=== PATIENT | male | born 1975 | race Caucasian/White ===

== ENCOUNTER 2024-10-11 10:41 | Inpatient (IN) | payer OTHER ==
[~2024-10-11] VITALS: Ht 177.8 cm; Wt 112.2 kg
--- NOTE | 2024-10-11 10:56 | ED.PDOC ---
General HPI Comments 48 year old male presents to the ED with a chief complaint of urinary retention onset 2 days. Patient states he has been experiencing urinary retention for the past 2 days, "only few drops come out." Last night, patient experienced fever of 101.9 F. He is also experiencing chills, cough, headache and chest discomfort. Denies PMHx as well as diarrhea, nausea, vomiting, abdominal pain, dizziness, hematuria. No other symptoms or modifying factors present at this time. Chief Complaint: Urinary Time Seen by MD: 10:48 Reviewed notes: Medications, Allergies Allergies: Coded Allergies: Penicillins (Verified Allergy, Unknown, 10/11/24) Information Source: Patient Mode of Arrival: Ambulatory Severity: Moderate Timing: Days Duration: Since onset Prehospital treatment: None Onset: Spontaneous Symptoms: Other (retention) History of: None Location: None Penile discharge: None Modifying factors: None associated signs and symptoms: Fever Past Medical History PAST MEDICAL HISTORY: Denies Surgical History: Denies all surgeries Family History Family History: Reviewed,noncontributory to illness, No family hx of Cancer, No family hx of DM, No family hx of Heart hina, No family hx of HTN, No family hx ofKidney hina, No family hx of Liver hina, No family hx of Lung hina, No family hx of Stroke Social History Smoker: Non-Smoker Alcohol: Denies ETOH Use Drugs: Denies Drug Use Lives In: Home Constitutional: reports: chills, fever; denies: diaphoresis, fatigue, malaise, sweats, weakness, others EENTM: denies: blurred vision, double vision, ear bleeding, ear discharge, ear drainage, ear pain, ear ringing, eye pain, eye redness, hearing loss, mouth pain, mouth swelling, nasal discharge, nose bleeding, nose congestion, nose pain, photophobia, tearing, throat pain, throat swelling, voice changes, others Respiratory: reports: cough; denies: hemoptysis, orthopnea, SOB at rest, shortness of breath, SOB with excertion, stridor, wheezing, others Cardiovascular: denies: chest pain, dizzy spells, diaphoresis, Dyspnea on exertion, edema, irregular heart beat, left arm pain, lightheadedness, palpitations, PND, syncope, others Gastrointestinal: reports: poor appetite; denies: abdomen distended, abdominal pain, blood streaked bowels, constipated, diarrhea, dysphagia, difficulty swallowing, hematemesis, melena, nausea, poor fluid intake, rectal bleeding, rectal pain, vomiting, others Genitourinary: reports: others (difficulty urinating, retention); denies: burning, dysuria, flank pain, frequency, hematuria, incontinence, penile discharge, penile sore, pain, testicle pain, testicle swelling, urgency Neurological: reports: headache; denies: dizziness, fainting, left sided numbness, left sided weakness, numbness, paresthesia, pre-existing deficit, right sided numbness, right sided weakness, seizure, speech problems, tingling, tremors, weakness, others Musculoskeletal: denies: back pain, gout, joint pain, joint swelling, muscle pain, muscle stiffness, neck pain, others Integumetry: denies: bruises, change in color, change in hair/nails, dryness, laceration, lesions, lumps, rash, wounds, others Allergic/Immunocompromised: denies: Difficulty Healing, Frequent Infections, Hives, Itching, others Hematologic/Lymphatic: denies: anemia, blood clots, easy bleeding, easy bruising, swollen glands, others Endocrine: denies: excessive hunger, excessive sweating, excessive thirst, excessive urination, flushing, intolerance to cold, intolerance to heat, unexplained weight gain, unexplained weight loss, others Psychiatric: denies: anxiety, bipolar disorder, depression, hopeless, panic disorder, schizophrenia, sleepless, suicidal, others All Other Systems: Reviewed and Negative Physical Exam General Appearance: Moderate Distress, Normal HEENT: Normal ENT Inspection, Pharynx Normal, TMs Normal Neck: Full Range of Motion, Non-Tender, Normal, Normal Inspection Respiratory: Chest Non-Tender, Lungs Clear, No Accessory Muscle Use, No Respiratory Distress, Normal Breath Sounds Cardiovascular: No Edema, No JVD, No Murmur, No Gallop, Normal Peripheral Pulses, Tachycardia Breast Exam: Deferred Gastrointestinal: No Organomegaly, Non Tender, No Pulsatile Mass, Normal Bowel Sounds, Soft Genitalia: Deferred Pelvic: Deferred Rectal: Deferred Extremities: No calf tenderness, Normal capillary refill, Normal inspection, Normal range of motion, Non-tender, No pedal edema Musculoskeletal : Apperance: Normal Neurologic: Alert, electrician's assistant II-XII nml as Tested, No Motor Deficits, Normal Affect, Normal Mood, No Sensory Deficits Cerebellar Function: Normal Reflexes: Normal Skin: Dry, Normal Color, Warm Peripheral Pulses: 3+ Radial (R), 3+ Radial (L) Lymphatic: No Adenopathy Was a procedure done? Was a procedure done?: No EKG EKG : Pulse Rate (adult): 124 Cardiac Rhythm: ST Differential Diagnosis Kidney stone (Female): Musculoskeletal pain, Urinary obstruction, Urolithiasis X-Ray, Labs, Meds, VS Vital Signs Date Time Temp Pulse Resp B/P (MAP) Pulse Ox O2 Delivery O2 Flow Rate FiO2 10/11/24 11:09 124 10/11/24 11:06 102.9 10/11/24 10:53 124 10/11/24 10:52 102.9 124 20 136/66 (89) 97 102.9 Lab Test 10/11/24 11:07 10/11/24 10:52 Range/Units White Blood Count 13.9 H 4.4-10.8 10^3/uL Red Blood Count 5.02 4.5-5.90 10^6/uL Hemoglobin 15.5 13.5-17.5 g/dL Hematocrit 46.3 41.0-53.0 % Mean Corpuscular Volume 92.3 80.0-100.0 fL Mean Corpuscular Hemoglobin 30.9 28.0-32.0 pg Mean Corpuscular Hemoglobin Concent 33.5 32.0-36.0 g/dL Red Cell Distribution Width 13.5 11.8-14.3 % Platelet Count 182 140-450 10^3/uL Mean Platelet Volume 7.7 6.9-10.8 fL Neutrophils (%) (Auto) 90.1 H 37.0-80.0 % Lymphocytes (%) (Auto) 4.9 L 10.0-50.0 % Monocytes (%) (Auto) 4.5 0.0-12.0 % Eosinophils (%) (Auto) 0.1 0.0-7.0 % Basophils (%) (Auto) 0.4 0.0-2.0 % Neutrophils # (Auto) 12.5 H 1.6-8.6 10 ^3/uL Lymphocytes # (Auto) 0.7 0.4-5.4 10 ^3/uL Monocytes # (Auto) 0.6 0-1.3 10 ^3/uL Eosinophils # (Auto) 0 0-0.8 10 ^3/uL Basophils # (Auto) 0.1 0-0.2 10 ^3/uL Nucleated Red Blood Cells 0.0 % Sodium Level 136 136-145 mmol/L Potassium Level 3.6 3.5-5.1 mmol/L Chloride Level 103 98-107 mmol/L Carbon Dioxide Level 24 20-31 mmol/L Anion Gap 9 5-15 Blood Urea Nitrogen 12 9-23 mg/dL Creatinine 1.10 0.700-1.30 mg/dL Glomerular Filtration Rate Calc 83 >90 mL/min BUN/Creatinine Ratio 10.9 10.0-20.0 Serum Glucose 162 H 74-106 mg/dL Calcium Level 9.2 8.7-10.4 mg/dL Urine Color Pending Urine Clarity Pending Urine pH Pending Urine Specific [place] Pending Urine Protein Pending Urine Ketones Pending Urine Blood Pending Urine Nitrite Pending Urine Bilirubin Pending Urine Urobilinogen Pending Urine Leukocyte Esterase Pending Urine RBC Pending Urine Microscopic WBC Pending Urine Squamous Epithelial Cells Pending Urine Bacteria Pending Urine Glucose Pending Current Medications Medications (Trade) Dose Ordered Sig/Sushma Route Start Time Stop Time Status Last Admin Sodium Chloride 1,000 ml @ 1,000 mls/hr Q1H ONCE IV 10/11/24 11:00 10/11/24 11:59 10/11/24 11:39 Acetaminophen (Tylenol Tablet Or Capsule) 1,000 mg ONCE ONCE PO 10/11/24 11:00 10/11/24 11:01 DC 10/11/24 11:06 Patient alert. Complaining of urinary hesitancy. Has fever. Answering questions. Possible pyelonephritis. Was given Rocephin. Was given Tylenol. Establish intravenous access. Was given fluids. Tachycardia. Reviewed his history. Does have inflammation of the lungs. Possible pneumonitis. Explained to the patient. Continue monitoring. [address] [address] Ph: [phone] DIAGNOSTIC IMAGING Diagnostic Imaging Report : [id number] Signed PATIENT: YECENIA HALL ACCT: [id number] UNIT: [id number] : 1975 LOC: ER ROOM / BED: / AGE / SEX: 48 / M ADM STATUS: REG ER SERVICE 1120 ORDERING PHYSICIAN: ISAIAH MARSHALL MD PROCEDURE(s): CXRP - CHEST PORTABLE REASON: sob ORDER NUMBER(s): [id number], ACCESSION NUMBER(s): [id number] XY CHEST PORTABLE, HISTORY: sob COMPARISON: None None TECHNICAL DATA: 1 view of the chest was obtained. FINDINGS: Lines and tubes: None Cardiomediastinal silhouette: normal Pulmonary vasculature: normal Lung expansion: normal Lung airspace: normal Lung interstitium: normal Pleura: normal Pneumothorax: no Bones: Unremarkable Other: no IMPRESSION: No acute intrathoracic abnormality. ATED BY: HANY LEVI MD DICTATED DATE/TIME: 10/11/24 114 SIGNED BY: HANY LEVI MD SIGNED DATE/TIME: 10/11/241144 CC: Time of 1ST Reevaluation: 11:18 Reevaluation 1ST: Unchanged Patient Education/Counseling: Diagnosis, Treatment, Prognosis Family Education/Counseling: No Family Present Additional Information The following tests were ordered, and results were reviewed by me: CBC, XY CHEST, UA, BMP, EKG I reviewed and agreed with the following test results read by other providers: XY CHEST I discussed treatment and results with medical personnel and: Patient Comprehensive systems review obtained and negative except for what is stated in the HPI. Departure 1 Departure Time of Disposition: 11:28 Impression: Primary Impression: Pneumonitis Additional Impression: Pyelonephritis Disposition: ADMITTED INPATIENT Admit to: Med Surg Condition: Guarded Critical Care Note Critical Care Time?: No Stability Stability form required: No Heart Score Heart Score: Heart Score Response (Comments) Value History Slightly Suspicious 0 EKG Normal 0 Age 45-64 1 Risk Factors 1 or 2 risk factors 1 Troponin Normal limit 0 Total 2 I personally scribed for ISAIAH MARSHALL MD ([email or web address]) on 10/11/24 at 10:56. Electronically submitted by Catherine Escobar ([email or web address]). I personally scribed for ISAIAH MARSHALL MD ([email or web address]) on 10/11/24 at 10:57. Electronically submitted by Catherine Escobar ([email or web address]). I personally scribed for ISAIAH MARSHALL MD ([email or web address]) on 10/11/24 at 11:09. Electronically submitted by Catherine Escobar ([email or web address]). I personally scribed for ISAIAH MARSHALL MD ([email or web address]) on 10/11/24 at 11:49. Electronically submitted by Catherine Escobar ([email or web address]). ISAIAH MARSHALL MD Oct 11, 2024 10:56
--- NOTE | 2024-10-11 10:57 | ECG ---
[facility] Test Date: 2024-10-11 Test Time: 10:53:29 Pat Name: YECENIA HALL Department: ER Room: 0286 Gender: M [employer] A[employer]: ASH : 1975 Requested By: ISAIAH MARSHALL Order Number: [id number] Reading MD: Jose Buchanan Measurements Intervals [place] Rate: 124 P: 62 IN: 126 QRS: 124 QRSD: 95 T: 5 QT: 289 QTc: 415 Interpretive Statements Sinus tachycardia Left posterior fascicular block Electronically Signed On 10-15-2024 20:51:54 PDT by Jose Buchanan Please click the below link to view image of tracing.
[2024-10-11] MEDS ORDERED: POTASSIUM CHL 20MEQ/100ML 100 ML IV SCH (11:00)
[2024-10-11] MEDS: ACETAMINOPHEN 500 MG TAB or CAP PO ONE (11:06)
[2024-10-11 11:21] LABS: Basophils # (auto) 0.1 10 ^3/uL (0-0.2); Basophils % (auto) 0.4 % (0.0-2.0); Eosinophils # (auto) 0 10 ^3/uL (0-0.8); Eosinophils % (auto) 0.1 % (0.0-7.0); Hematocrit 46.3 % (41.0-53.0); Hemoglobin 15.5 g/dL (13.5-17.5); Lymphocytes # (auto) 0.7 10 ^3/uL (0.4-5.4); Lymphocytes % (auto) 4.9 % (10.0-50.0); Mean Corpuscular Hemoglobin 30.9 pg (28.0-32.0); Mean Corpuscular Hgb Conc. 33.5 g/dL (32.0-36.0); Mean Corpuscular Volume 92.3 fL (80.0-100.0); Monocytes # (auto) 0.6 10 ^3/uL (0-1.3); Monocytes % (auto) 4.5 % (0.0-12.0); Neutrophils # (auto) 12.5 10 ^3/uL (1.6-8.6); Neutrophils % (auto) 90.1 % (37.0-80.0); Platelet Count (auto) 182 10^3/uL (140-450); Red Blood Cells 5.02 10^6/uL (4.5-5.90); Red Cell Distribution Width 13.5 % (11.8-14.3); White Blood Cell 13.9 10^3/uL (4.4-10.8)
[2024-10-11 11:31] LABS: Chloride 103 mmol/L (98-107); Potassium 3.6 mmol/L (3.5-5.1)
[2024-10-11 11:32] LABS: Anion Gap 9 (5-15); Carbon Dioxide 24 mmol/L (20-31)
[2024-10-11 11:33] LABS: Calcium 9.2 mg/dL (8.7-10.4)
[2024-10-11 11:37] LABS: BUN/Creatinine Ratio 10.9 (10.0-20.0); Blood Urea Nitrogen 12 mg/dL (9-23)
[2024-10-11] MEDS: SODIUM CHLORIDE 0.9% 1,000 ML IV ONE ×2 (11:39→14:57)
[2024-10-11 11:43] LABS: Glucose 162 mg/dL (74-106); Sodium 136 mmol/L (136-145)
--- NOTE | 2024-10-11 11:47 | DVH ---
XY CHEST PORTABLE, HISTORY: sob COMPARISON: None None TECHNICAL DATA: 1 view of the chest was obtained. FINDINGS: Lines and tubes: None Cardiomediastinal silhouette: normal Pulmonary vasculature: normal Lung expansion: normal Lung airspace: normal Lung interstitium: normal Pleura: normal Pneumothorax: no Bones: Unremarkable Other: no IMPRESSION: No acute intrathoracic abnormality.
[2024-10-11] MEDS: cefTRIAXone 1GM/50ML D5W 50 ML IV ONE (11:59)
[2024-10-11 12:19] VITALS: PULSE 107; RESP 18; O2SAT 95
[2024-10-11 12:38] LABS: Urine Bacteria FEW /hpf (None Seen); Urine Blood Negative /uL (Negative); Urine Clarity Clear (Clear); Urine Color Yellow (Yellow); Urine Mucus FEW (None Seen); Urine Protein, UAD 1+ (Negative); Urine Specific Gravity 1.027 (1.001-1.035); Urine Squamous Epithelial Cell None Seen /hpf (<5); Urine Urobilinogen 2 mg/dL (Negative); Urine WBC 115 /HPF (0-3)
[2024-10-11] MEDS ORDERED: ONDANSETRON HCL 4 MG/2 ML VIAL IV PRN (14:00)
--- NOTE | 2024-10-11 14:18 | DVHHP2 ---
Admitting Diagnosis: Urinary retention History of Present Illness 48 year old male presents to the ED with a chief complaint of urinary retention onset 2 days. Patient states he has been experiencing urinary retention for the past 2 days, "only few drops come out." Last night, patient experienced fever of 101.9 F. He is also experiencing chills, cough, headache and chest discomfort. Denies PMHx as well as diarrhea, nausea, vomiting, abdominal pain, dizziness, hematuria. No other symptoms or modifying factors present at this time. PAST MEDICAL HISTORY: Denies Surgical History: Denies all surgeries Family History Family History: Reviewed,noncontributory to illness, No family hx of Cancer, No family hx of DM, No family hx of Heart hina, No family hx of HTN, No family hx ofKidney hina, No family hx of Liver hina, No family hx of Lung hina, No family hx of Stroke Social History Smoker: Non-Smoker Alcohol: Denies ETOH Use Drugs: Denies Drug Use Lives In: Home Allergies: Coded Allergies: Penicillins (Verified Allergy, Unknown, 10/11/24) Current Medications Current Medications Medications (Trade) Dose Ordered Sig/Sushma Route PRN Reason Start Time Stop Time Status Last Admin Potassium Chloride 100 ml @ 50 mls/hr Q2H IV 10/11/24 11:00 10/11/24 12:07 DC Vital Signs Vital Signs Date Time Temp Pulse Resp B/P (MAP) Pulse Ox O2 Delivery O2 Flow Rate FiO2 10/11/24 12:19 107 18 95 Room Air* 0 21 10/11/24 12:03 100.0 134/63 (86) 100.0 Physical Exam Generally-sprain in years old male, well nourished well developed. Mild distress HEENT-atraumatic normocephalic Heart-regular rate and rhythm Lungs clear to auscultate bilaterally Abdomen soft nontender nondistended Musculoskeletal-no edema cyanosis Neuro-AO x3, no focal deficit Results Labs Test 10/11/24 11:07 10/11/24 10:52 Range/Units White Blood Count 13.9 H 4.4-10.8 10^3/uL Red Blood Count 5.02 4.5-5.90 10^6/uL Hemoglobin 15.5 13.5-17.5 g/dL Hematocrit 46.3 41.0-53.0 % Mean Corpuscular Volume 92.3 80.0-100.0 fL Mean Corpuscular Hemoglobin 30.9 28.0-32.0 pg Mean Corpuscular Hemoglobin Concent 33.5 32.0-36.0 g/dL Red Cell Distribution Width 13.5 11.8-14.3 % Platelet Count 182 140-450 10^3/uL Mean Platelet Volume 7.7 6.9-10.8 fL Neutrophils (%) (Auto) 90.1 H 37.0-80.0 % Lymphocytes (%) (Auto) 4.9 L 10.0-50.0 % Monocytes (%) (Auto) 4.5 0.0-12.0 % Eosinophils (%) (Auto) 0.1 0.0-7.0 % Basophils (%) (Auto) 0.4 0.0-2.0 % Neutrophils # (Auto) 12.5 H 1.6-8.6 10 ^3/uL Lymphocytes # (Auto) 0.7 0.4-5.4 10 ^3/uL Monocytes # (Auto) 0.6 0-1.3 10 ^3/uL Eosinophils # (Auto) 0 0-0.8 10 ^3/uL Basophils # (Auto) 0.1 0-0.2 10 ^3/uL Nucleated Red Blood Cells 0.0 % Sodium Level 136 136-145 mmol/L Potassium Level 3.6 3.5-5.1 mmol/L Chloride Level 103 98-107 mmol/L Carbon Dioxide Level 24 20-31 mmol/L Anion Gap 9 5-15 Blood Urea Nitrogen 12 9-23 mg/dL Creatinine 1.10 0.700-1.30 mg/dL Glomerular Filtration Rate Calc 83 >90 mL/min BUN/Creatinine Ratio 10.9 10.0-20.0 Serum Glucose 162 H 74-106 mg/dL Calcium Level 9.2 8.7-10.4 mg/dL Troponin I High Sensitivity 4 </=54 ng/L Urine Color Yellow Yellow Urine Clarity Clear Clear Urine pH 6.0 5.0-9.0 Urine Specific [place] 1.027 1.001-1.035 Urine Protein 1+ H Negative Urine Ketones Negative Negative Urine Blood Negative Negative /uL Urine Nitrite Negative Negative Urine Bilirubin Negative Negative Urine Urobilinogen 2 H Negative mg/dL Urine Leukocyte Esterase 2+ Negative /uL Urine RBC 5 0 - 3 /hpf Urine Microscopic WBC 115 H 0-3 /HPF Urine Squamous Epithelial Cells None seen <5 /hpf Urine Bacteria Few H None Seen /hpf Urine Mucus Few None Seen Urine Glucose Normal Normal mg/dL Primary Diagnosis Acute pyelonephritis Plan Patient denies fever and chills, UA positive Start ceftriaxone 2 g daily. Check urine culture. IV fluids Monitor urine output Regular diet Full code Lovenox for DVT prophylaxis No GI prophylaxis needed Plan discussed with: Patient Date of Service: Oct 11, 2024 Billing Provider: CATRACHITO VICTORIA MD Common Visit Codes: [id number] INP/OBS CARE (HIGH) CATRACHITO VICTORIA MD Oct 11, 2024 14:18
[2024-10-11] MEDS: SODIUM CHLOR 0.9% PF (SALINE LOCK) 10ML VIAL/SYR IV SCH (14:30)
[2024-10-11] MEDS: ACETAMINOPHEN 325 MG TAB PO PRN (15:55)
[2024-10-11 16:10] VITALS: BP 107/65; PULSE 86; RESP 18; TEMP 101; TEMP 99.1; O2SAT 96
[2024-10-11 18:15] VITALS: PULSE 68; RESP 18; O2SAT 96
[2024-10-11 20:00] VITALS: BP 117/67; PULSE 111; RESP 19; TEMP 98.8; O2SAT 96
[2024-10-11 22:05] VITALS: BP 109/53; PULSE 102; RESP 18; TEMP 101; O2SAT 95
[2024-10-12] VITALS (9 sets, daily range): BP systolic 105–126; BP diastolic 53–77; PULSE 80–109; RESP 18–20; TEMP 98.1–102.8; O2SAT 95–98
[2024-10-12 06:12] LABS: Basophils # (auto) 0 10 ^3/uL (0-0.2); Basophils % (auto) 0.5 % (0.0-2.0); Eosinophils # (auto) 0 10 ^3/uL (0-0.8); Eosinophils % (auto) 0.1 % (0.0-7.0); Hematocrit 43.9 % (41.0-53.0); Hemoglobin 15.2 g/dL (13.5-17.5); Lymphocytes # (auto) 0.8 10 ^3/uL (0.4-5.4); Lymphocytes % (auto) 8.9 % (10.0-50.0); Mean Corpuscular Hemoglobin 31.7 pg (28.0-32.0); Mean Corpuscular Hgb Conc. 34.5 g/dL (32.0-36.0); Mean Corpuscular Volume 91.7 fL (80.0-100.0); Monocytes # (auto) 0.7 10 ^3/uL (0-1.3); Monocytes % (auto) 8.4 % (0.0-12.0); Neutrophils # (auto) 7.3 10 ^3/uL (1.6-8.6); Neutrophils % (auto) 82.1 % (37.0-80.0); Platelet Count (auto) 170 10^3/uL (140-450); Red Blood Cells 4.78 10^6/uL (4.5-5.90); Red Cell Distribution Width 13.2 % (11.8-14.3); White Blood Cell 8.9 10^3/uL (4.4-10.8)
[2024-10-12 06:33] LABS: Alkaline Phosphatase 49 U/L (46-116); Anion Gap 10 (5-15); BUN/Creatinine Ratio 10.6 (10.0-20.0); Blood Urea Nitrogen 10 mg/dL (9-23); Carbon Dioxide 21 mmol/L (20-31); Chloride 103 mmol/L (98-107); Potassium 3.5 mmol/L (3.5-5.1); Total Protein 6.3 g/dL (5.7-8.2)
[2024-10-12 07:06] LABS: Alanine Aminotransferase 59 U/L (7-40); Aspartate Aminotransferase 51 U/L (13-40); Bilirubin, Total 1.5 mg/dL (0.2-1.0); CRP High Sensitivity 13.36 mg/dL (<1.0); Glucose 112 mg/dL (74-106); Sodium 134 mmol/L (136-145)
[2024-10-12] MEDS: cefTRIAXone 2GM/50ML D5W 50 ML IV SCH (09:04)
[2024-10-12] MEDS ORDERED: cefTRIAXone 1GM/50ML D5W 50 ML IV SCH (10:00)
--- NOTE | 2024-10-12 12:13 | DVHPN2 ---
Reviewed: Care Plan, H&P, Labs, Medications, Previous Orders, Radiology Changes from previous H/P or p: No Changes Objective Vitals Vital Signs Date Time Temp Pulse Resp B/P (MAP) Pulse Ox O2 Delivery O2 Flow Rate FiO2 10/12/24 10:42 100.6 10/12/24 09:42 96 Room Air 0.0 10/12/24 09:42 21 10/12/24 09:00 90 18 121/77 (92) Intake/Output Intake and Output 10/12/24 07:00 Intake Total 1300 ml Output Total 4 ml Balance 1296 ml Intake Oral 250 ml IV Total 1050 ml Output Urine Total 4 ml Medications Current Medications Medications Dose Ordered Sig/Sushma Route Start Time Stop Time Status Last Admin Dose Admin Sodium Chloride 10 ml Q8HR IV 10/11/24 14:00 10/12/24 06:00 10 ML Acetaminophen 650 mg Q6HP PRN PO 10/11/24 14:00 10/12/24 10:42 650 MG Ondansetron HCl 4 mg Q4HP PRN IV 10/11/24 14:00 Ceftriaxone Sodium/Dextrose 50 ml @ 50 mls/hr DAILY IV 10/12/24 10:00 10/12/24 09:04 50 MLS/HR Laboratory Results Laboratory Tests 10/12/24 05:12 Chemistry Test 10/12/24 05:12 Albumin 4.0 g/dL (3.2-4.8) Calcium Level 9.0 mg/dL (8.7-10.4) Total Protein 6.3 g/dL (5.7-8.2) LFT Test 10/12/24 05:12 Alanine Aminotransferase (ALT) 59 U/L (7-40) H Alkaline Phosphatase 49 U/L (46-116) Aspartate Amino Transferase (AST) 51 U/L (13-40) H Total Bilirubin 1.5 mg/dL (0.2-1.0) H Urinalysis Test 10/11/24 10:52 Urine Color Yellow (Yellow) Urine Clarity Clear (Clear) Urine pH 6.0 (5.0-9.0) Urine Specific [place] 1.027 (1.001-1.035) Urine Protein 1+ (Negative) H Urine Ketones Negative (Negative) Urine Blood Negative /uL (Negative) Urine Nitrite Negative (Negative) Urine Bilirubin Negative (Negative) Urine Urobilinogen 2 mg/dL (Negative) H Urine Leukocyte Esterase 2+ /uL (Negative) Urine RBC 5 /hpf (0 - 3) Urine Microscopic WBC 115 /HPF (0-3) H Urine Squamous Epithelial Cells None seen /hpf (<5) Urine Bacteria Few /hpf (None Seen) H Urine Mucus Few (None Seen) Urine Glucose Normal mg/dL (Normal) Labs and/or images reviewed: Labs reviewed by me, Image(s) reviewed by me Assessment/Plan Assessment/Plan Sepsis secondary to urinary tract infection blood cultures urine cultures Acute pyelonephritis: Rocephin Acute urinary retention: CT abdomen pelvis without contrast PSA Plan discussed with: Patient My Orders Orders - ILYA CAMPOS MD Procedure Category Date Status Time Ct Ab Pel Wo Con-No CT 10/12/24 Transmitted Oral Or Iv 11:57 Psa Total+% Free LAB 10/12/24 Transmitted 11:57 Blood Culture ROMI 10/12/24 Verified 11:58 Date of Service: Oct 12, 2024 Billing Provider: ILYA CAMPOS MD Common Visit Codes: [id number] INP/OBS CARE(HIGH) ILYA CAMPOS MD Oct 12, 2024 12:13
[2024-10-12] MEDS: guaiFENesin 200 MG/10 ML UD PO PRN (14:55)
[2024-10-12] MEDS: SODIUM CHLORIDE 0.9% 1,000 ML IV ONE (14:57)
--- NOTE | 2024-10-12 16:15 | DVH ---
Exam: CT CT AB PEL WO CON-NO ORAL OR IV History: Acute urinary retention Comparison Study: None available TECHNIQUE: Multidetector CT of the abdomen and pelvis was performed from lung bases to pubic symphysi s. Imaging was performed without IV contrast. Axial, coronal, and sagittal multiplanar reformats were obtained from the axial data set by the technologist. RADIATION DOSE: DLP 1080.63 mGy.cm; CTDI vol 20.16 mGy. Findings: Lungs: The lung bases are clear. Heart: No cardiomegaly or pericardial effusion. Liver: Unremarkable. Gallbladder: Unremarkable. Spleen: Unremarkable Pancreas: Unremarkable Adrenals: Unremarkable Kidneys: Unremarkable GI tract: Unremarkable : Unremarkable. Urinary bladder is nondistended. Vasculature: Unremarkable Lymphadenopathy: Slightly prominent retroperitoneal nodes. Submucosal fat deposition of the ileum. Peritoneum: No ascites Musculoskeletal: Mild multilevel degenerative changes of the thoracolumbar spine. Soft tissues: Unremarkable Impression: 1. No acute abdominopelvic abnormalities. 2. Submucosal fat deposition of the ileum. Correlate for inflammatory bowel disease. 3. Slightly prominent retroperitoneal nodes, nonspecific. 4. Nondistended urinary bladder.
[2024-10-13 01:00] VITALS: BP 124/73; PULSE 79; RESP 18; TEMP 99.2; O2SAT 97
[2024-10-13 05:00] VITALS: BP 111/68; PULSE 83; RESP 16; TEMP 98.3; O2SAT 97
[2024-10-13 06:26] LABS: Basophils # (auto) 0 10 ^3/uL (0-0.2); Basophils % (auto) 0.6 % (0.0-2.0); Eosinophils # (auto) 0.1 10 ^3/uL (0-0.8); Eosinophils % (auto) 2.2 % (0.0-7.0); Hematocrit 41.7 % (41.0-53.0); Hemoglobin 14.3 g/dL (13.5-17.5); Lymphocytes # (auto) 1.4 10 ^3/uL (0.4-5.4); Lymphocytes % (auto) 21.3 % (10.0-50.0); Mean Corpuscular Hemoglobin 31.2 pg (28.0-32.0); Mean Corpuscular Hgb Conc. 34.3 g/dL (32.0-36.0); Monocytes # (auto) 0.8 10 ^3/uL (0-1.3); Monocytes % (auto) 12.5 % (0.0-12.0); Neutrophils # (auto) 4.1 10 ^3/uL (1.6-8.6); Neutrophils % (auto) 63.4 % (37.0-80.0); Platelet Count (auto) 166 10^3/uL (140-450); Red Blood Cells 4.59 10^6/uL (4.5-5.90); Red Cell Distribution Width 13.2 % (11.8-14.3); White Blood Cell 6.4 10^3/uL (4.4-10.8)
[2024-10-13 06:33] LABS: Albumin 3.8 g/dL (3.2-4.8); Anion Gap 7 (5-15); Bilirubin, Total 0.6 mg/dL (0.2-1.0); Blood Urea Nitrogen 10 mg/dL (9-23); Carbon Dioxide 26 mmol/L (20-31); Chloride 104 mmol/L (98-107); Glucose 96 mg/dL (74-106); Potassium 3.8 mmol/L (3.5-5.1); Sodium 137 mmol/L (136-145); Total Protein 6.2 g/dL (5.7-8.2)
[2024-10-13 06:35] LABS: Alanine Aminotransferase 52 U/L (7-40); Alkaline Phosphatase 46 U/L (46-116); Aspartate Aminotransferase 43 U/L (13-40); Calcium 8.6 mg/dL (8.7-10.4)
[2024-10-13] MEDS: cefTRIAXone 1GM/50ML D5W 50 ML IV SCH (08:53)
[2024-10-13 09:00] VITALS: BP 115/64; PULSE 89; RESP 18; TEMP 99.4; O2SAT 98
[2024-10-13] MEDS ORDERED: CIPR-173 PO (12:13)
--- NOTE | 2024-10-13 12:15 | DVHPN2 ---
Reviewed: Care Plan, H&P, Labs, Medications, Previous Orders, Radiology Changes from previous H/P or p: No Changes Objective Vitals Vital Signs Date Time Temp Pulse Resp B/P (MAP) Pulse Ox O2 Delivery O2 Flow Rate FiO2 10/13/24 10:25 98.2 10/13/24 09:00 89 18 115/64 (81) 98 10/13/24 08:10 Room Air* 0 21 Intake/Output Intake and Output 10/13/24 07:00 Intake Total 2310 ml Output Total 10 ml Balance 2300 ml Intake Oral 1510 ml IV Total 800 ml Output Urine Total 10 ml # Voids 3 Medications Current Medications Medications Dose Ordered Sig/Sushma Route Start Time Stop Time Status Last Admin Dose Admin Sodium Chloride 10 ml Q8HR IV 10/11/24 14:00 10/13/24 06:00 10 ML Acetaminophen 650 mg Q6HP PRN PO 10/11/24 14:00 10/13/24 10:25 650 MG Ondansetron HCl 4 mg Q4HP PRN IV 10/11/24 14:00 Guaifenesin 300 mg Q8HP PRN PO 10/12/24 12:15 10/12/24 14:55 300 MG Ceftriaxone Sodium 50 ml @ 100 mls/hr DAILY@09 IV 10/13/24 09:00 10/13/24 08:53 100 MLS/HR Laboratory Results Laboratory Tests 10/13/24 05:37 Chemistry Test 10/13/24 05:37 Albumin 3.8 g/dL (3.2-4.8) Calcium Level 8.6 mg/dL (8.7-10.4) L Total Protein 6.2 g/dL (5.7-8.2) LFT Test 10/13/24 05:37 Alanine Aminotransferase (ALT) 52 U/L (7-40) H Alkaline Phosphatase 46 U/L (46-116) Aspartate Amino Transferase (AST) 43 U/L (13-40) H Total Bilirubin 0.6 mg/dL (0.2-1.0) Urinalysis Test 10/11/24 10:52 Urine Color Yellow (Yellow) Urine Clarity Clear (Clear) Urine pH 6.0 (5.0-9.0) Urine Specific [place] 1.027 (1.001-1.035) Urine Protein 1+ (Negative) H Urine Ketones Negative (Negative) Urine Blood Negative /uL (Negative) Urine Nitrite Negative (Negative) Urine Bilirubin Negative (Negative) Urine Urobilinogen 2 mg/dL (Negative) H Urine Leukocyte Esterase 2+ /uL (Negative) Urine RBC 5 /hpf (0 - 3) Urine Microscopic WBC 115 /HPF (0-3) H Urine Squamous Epithelial Cells None seen /hpf (<5) Urine Bacteria Few /hpf (None Seen) H Urine Mucus Few (None Seen) Urine Glucose Normal mg/dL (Normal) Microbiology Microbiology Date/Time Source Procedure Growth Status 10/11/24 10:52 Voided Urine Urine Culture - Final Complete Labs and/or images reviewed: Labs reviewed by me, Image(s) reviewed by me Assessment/Plan Assessment/Plan Sepsis secondary to urinary tract infection blood cultures urine cultures Acute pyelonephritis: Rocephin Acute urinary retention: CT abdomen pelvis without contrast negative Urine cultures negative Patient feels fine and wants to go home Plan discussed with: Patient My Orders Orders - ILYA CAMPOS MD Procedure Category Date Status Time Guaifenesin Plain PHA 10/12/24 In Process Liquid (Robitussin Jennifer 12:15 Ceftriaxone 1gm/50ml PHA 10/13/24 In Process D5w (Rocephin) 09:00 Date of Service: Oct 13, 2024 Billing Provider: ILYA CAMPOS MD Common Visit Codes: [id number] INP/OBS CARE(HIGH) ILYA CAMPOS MD Oct 13, 2024 12:15
--- NOTE | 2024-10-13 12:18 | DVHDS2 ---
Discharge Summary Date of Admission Oct 11, 2024 at 13:55 Date of Discharge: Oct 13, 2024 Admitting Diagnosis Acute urinary retention Wounds: None Labs/Diagnostic Data: Laboratory Results Test 10/13/24 05:37 10/12/24 05:12 10/11/24 11:07 10/11/24 10:52 White Blood Count 6.4 10^3/uL (4.4-10.8) Red Blood Count 4.59 10^6/uL (4.5-5.90) Hemoglobin 14.3 g/dL (13.5-17.5) Hematocrit 41.7 % (41.0-53.0) Mean Corpuscular Volume 91.0 fL (80.0-100.0) Mean Corpuscular Hemoglobin 31.2 pg (28.0-32.0) Mean Corpuscular Hemoglobin Concent 34.3 g/dL (32.0-36.0) Red Cell Distribution Width 13.2 % (11.8-14.3) Platelet Count 166 10^3/uL (140-450) Mean Platelet Volume 8.2 fL (6.9-10.8) Neutrophils (%) (Auto) 63.4 % (37.0-80.0) Lymphocytes (%) (Auto) 21.3 % (10.0-50.0) Monocytes (%) (Auto) 12.5 % (0.0-12.0) Eosinophils (%) (Auto) 2.2 % (0.0-7.0) Basophils (%) (Auto) 0.6 % (0.0-2.0) Neutrophils # (Auto) 4.1 10 ^3/uL (1.6-8.6) Lymphocytes # (Auto) 1.4 10 ^3/uL (0.4-5.4) Monocytes # (Auto) 0.8 10 ^3/uL (0-1.3) Eosinophils # (Auto) 0.1 10 ^3/uL (0-0.8) Basophils # (Auto) 0 10 ^3/uL (0-0.2) Nucleated Red Blood Cells 0.0 % Sodium Level 137 mmol/L (136-145) Potassium Level 3.8 mmol/L (3.5-5.1) Chloride Level 104 mmol/L (98-107) Carbon Dioxide Level 26 mmol/L (20-31) Anion Gap 7 (5-15) Blood Urea Nitrogen 10 mg/dL (9-23) Creatinine 0.91 mg/dL (0.700-1.30) Glomerular Filtration Rate Calc 104 mL/min (>90) BUN/Creatinine Ratio 11.0 (10.0-20.0) Serum Glucose 96 mg/dL (74-106) Calcium Level 8.6 mg/dL (8.7-10.4) Total Bilirubin 0.6 mg/dL (0.2-1.0) Aspartate Amino Transferase (AST) 43 U/L (13-40) Alanine Aminotransferase (ALT) 52 U/L (7-40) Alkaline Phosphatase 46 U/L (46-116) Total Protein 6.2 g/dL (5.7-8.2) Albumin 3.8 g/dL (3.2-4.8) C-Reactive Protein High Sensitivity 13.36 mg/dL (<1.0) Troponin I High Sensitivity 4 ng/L (</=54) Urine Color Yellow (Yellow) Urine Clarity Clear (Clear) Urine pH 6.0 (5.0-9.0) Urine Specific Colony 1.027 (1.001-1.035) Urine Protein 1+ (Negative) Urine Ketones Negative (Negative) Urine Blood Negative /uL (Negative) Urine Nitrite Negative (Negative) Urine Bilirubin Negative (Negative) Urine Urobilinogen 2 mg/dL (Negative) Urine Leukocyte Esterase 2+ /uL (Negative) Urine RBC 5 /hpf (0 - 3) Urine Microscopic WBC 115 /HPF (0-3) Urine Squamous Epithelial Cells None seen /hpf (<5) Urine Bacteria Few /hpf (None Seen) Urine Mucus Few (None Seen) Urine Glucose Normal mg/dL (Normal) Other Laboratory Tests 10/13/24 05:37 Brief Hx & Hospital Course: 48-year-old male with no previous medical history came complaining of urinary retention and dysuria found to have urinary tract infection. Treated with Rocephin. Urine cultures negative CT abdomen pelvis without contrast negative PSA pending patient feels fine and wants to go home. Afebrile no pain discharged home on Cipro for UTI Consults/Reason for consult None Operations or Procedures CT abdomen pelvis without contrast Condition at Discharge: Fair Final Diagnosis/Problems List Sepsis secondary to urinary tract infection blood cultures urine cultures Acute pyelonephritis: Rocephin Acute urinary retention: CT abdomen pelvis without contrast negative Urine cultures negative Discharge Disposition: Home Discharge Instruct/Medications Diet: Regular Activity: Light activity Follow Up/Referral: Follow up with your primary Dr Medications: Cipro Transmitted to pharmacy 38 (Time taken for discharge summary 38 minutes) Discharge Statement: "Patient was advised to return to the ER or call 911 if any headaches, dizziness, shortness of breath, chest pain, abdominal pain, bleeding, fevers, or worsening of medical condition. Patient was counseled about treatment plan, medications, possible side effects, patientverbalized understanding. All questions were answered to the best of my ability. This discharge took greater then 30 minutes in planning, reviewing documentation, counseling the patient, and discussing with other team members." ASSESSMENT ASSESSMENT Hospital Course Improved Assessment Sepsis secondary to urinary tract infection blood cultures urine cultures Acute pyelonephritis: Rocephin Acute urinary retention: CT abdomen pelvis without contrast negative Urine cultures negative Date of Service: Oct 13, 2024 Billing Provider: ILYA CAMPOS MD Common Visit Codes: 84083-DSQ/OBS DISCH DAY >30min ILYA CAMPOS MD Oct 13, 2024 12:18
[2024-10-13 13:31] VITALS: BP 118/73; PULSE 73; RESP 18; TEMP 98.3; O2SAT 97
[2024-10-14 08:07] LABS: PSA Free 3.27 ng/mL; Prostate Specific Antigen 24.2 ng/mL (0.0-4.0)
== END 2024-10-13 14:08 | disposition home or self-care (01) | DRG 872 ==
LOC: ER 10:41 → OVERFLOW 13:55 → WEST WING 22:04
PROVIDERS: ADMIT Family Medicine; ATTEND Family Medicine
DX: A41.9 Sepsis, unspecified organism (principal); N10 Acute pyelonephritis; J98.4 Other disorders of lung; Z88.0 Allergy status to penicillin
CPT/HCPCS: 36415; 71045; 74176; 80048; 80053; 81001; 84154; 84484; 85025; 86141; 87040; 87086; 93005; 96361; 96365; G0378